=== PATIENT | male | born 1990 | race African-American/Black ===

== ENCOUNTER 2018-09-28 17:52 | Emergency (ER) | payer OTHER ==
[~2018-09-28] VITALS: Ht 180.3 cm; Wt 68.0 kg
--- NOTE | 2018-09-28 18:55 | NUR ---
Patient is resting comfortably on gurney while using his personal electronic device, pending MD evaluation@this time.
--- NOTE | 2018-09-28 19:07 | NUR ---
Hands off report given to SUSAN Vila
--- NOTE | 2018-09-28 19:20 | NUR ---
Patient wheeled down to CT in stable condition.
--- NOTE | 2018-09-28 19:30 | NUR ---
Patient back in room from CT.
[2018-09-28 20:01] LABS: BASOPHILS # (AUTO) 0.1 K/uL (0.0-8.0); EOSINOPHILS # (AUTO) 0.1 K/uL (0.0-0.7); EOSINOPHILS % (AUTO) 1.6 % (0.0-7.0); HEMATOCRIT 40.1 % (36.7-47.1); HEMOGLOBIN 13.3 g/dL (12.5-16.3); LYMPHOCYTES # (AUTO) 1.4 K/uL (20.0-40.0); LYMPHOCYTES % (AUTO) 25.2 % (20.5-51.5); MEAN CORPUSCULAR HEMOGLOBIN 32.4 uug (23.8-33.4); MEAN CORPUSCULAR HGB CONC 33 g/dL (32.5-36.3); MEAN CORPUSCULAR VOLUME 97.3 fL (73.0-96.2); MONOCYTES # (AUTO) 0.6 K/uL (2.0-10.0); MONOCYTES % (AUTO) 11.5 % (0.0-11.0); NEUTROPHILS # (AUTO) 3.4 K/uL (1.8-8.9); NEUTROPHILS % (AUTO) 60.7 % (38.5-71.5); PLATELET COUNT (AUTO) 209 K/uL (152-348); RED BLOOD CELL COUNT(AUTO) 4.12 MIL/uL (4.06-5.63); WHITE BLOOD COUNT (AUTO) 5.5 K/uL (3.6-10.2)
[2018-09-28 20:15] LABS: BILIRUBIN,TOTAL 0.6 mg/dL (0.2-1.0); CREATININE 1.2 mg/dL (0.6-1.3); TOTAL PROTEIN, SERUM 7.5 g/dL (6.4-8.2)
--- NOTE | 2018-09-28 21:45 | NUR ---
Patient discharged to home in stable conditon. Written and verbal after care instructions given. Patient verbalizes understanding of instructions. Patient ambulated with stable gait.
[2018-09-28 21:46] VITALS: BP 128/75
== END 2018-09-28 21:47 | disposition home or self-care (01) ==
LOC: ER 17:52
DX: R51 Headache (principal); Z91.048 Other nonmedicinal substance allergy status
CPT/HCPCS: 36415; 70450; 85025; 85651; A4663